=== PATIENT | female | born 1945 | race Caucasian/White ===

== ENCOUNTER 2017-05-04 11:26 | Emergency (ER) | payer MEDICARE, OTHER ==
[~2017-05-04] VITALS: Ht 152.4 cm; Wt 82.0 kg
[~2017-05-04 11:26] MED LIST: ABIL5TAB6 PO; ASPI1TAB69 PO; ATOR20TA15 PO; BENI5TAB4 PO; BUSP15TA PO; CARV6.252 PO; HYDR25TA5 PO; OMEP20TA PO; POTA-163 PO; RALO1TAB PO; THYR15 PO
[2017-05-04 11:35] VITALS: BP 137/79; PULSE 70; RESP 18; TEMP 98.7; O2SAT 97
[2017-05-04 11:45] VITALS: O2SAT 97
[2017-05-04] MEDS ORDERED: SODIUM CHLORIDE 0.9% FLUSH 10 ML FLUSH IVF PRN (11:45)
[2017-05-04] MEDS ORDERED: ASPIRIN 81 MG CHEW TAB PO ONE (11:45)
--- NOTE | 2017-05-04 11:45 | PD ---
HPI Chief Complaint: Chest Pain Time Seen by Provider: 11:33 Travel History International Travel<30 days: No Contact w/Intl Traveler<30days: No Traveled to known affect area: No History of Present Illness HPI 71-year-old female with history of mitral valve repair, hypertension, hyperlipidemia, here for evaluation of chest pain. Patient reports that she was sitting watching TV when she began to have substernal chest pain and pressure. Symptoms started about 11:10 AM. Patient describes the pain as sharp , nonradiating, no modifying factors. She took 2 sublingual nitroglycerin and reports some improvement in pain. Patient reports that she is followed by prem[employer] concrete batcher Dr. Red, and reports that she had a recent stress test which she believes was negative. She denies dyspnea. No history of DVT or PE. No paresthesias or motor deficits. PFSH Past Medical History Hx Anticoagulant Therapy: Yes (asa 81mg every other day) Arthritis: Yes (RIGHT FOOT FIRST TOE) Asthma: No Autoimmune Disease: No Blood Disorders: No Anxiety: Yes Depression: Yes Heart Rhythm Problems: No Cancer: No Cardiac Catheterization: Yes (no stents) Cardiovascular Problems: Yes (htn on meds) High Cholesterol: Yes Chemotherapy: No Chest Pain: Yes (HX OF PRIOR TO VALVE REPLACEMENT) Congestive Heart Failure: No COPD: No Cerebrovascular Accident: No Diabetes: No Diminished Hearing: No Endocrine: No Gastrointestinal Disorders: Yes GERD: Yes Genitourinary: No Headaches: Yes (OCCSL) Hepatitis: No Hiatal Hernia: No Hypertension: Yes Immune Disorder: No Implanted Vascular Access Dvce: Yes Kidney Stones: No Musculoskeletal: Yes Neurologic: No Psychiatric: No Respiratory: Yes Immunizations Current: Yes Migraines: No Myocardial Infarction: No Radiation Therapy: No Renal Failure: No Seizures: No Thyroid Disease: Yes (HYPO) Ulcer: No PNEUMOCCOCAL Vaccine (Year): 2 ?: Not Past Surgical History Abdominal Surgery: No AICD: No Body Medical Devices: ANNULOPLASTY RING TO AORTIC VALVE Cardiac Surgery: Yes (AORTIC VALVE REPLACEMENT IN 2010) Coronary Artery Bypass Graft: Yes Ear Surgery: No Endocrine Surgery: No Eye Surgery: No Genitourinary Surgery: No Gynecologic Surgery: Yes (HYSTERECTOMY 1991) Hysterectomy: Yes (1991) Joint Replacement: No Neurologic Surgery: No Oral Surgery: Yes (EXTRACTIONS) Pacemaker: No Thoracic Surgery: No Valve Replacement: Yes Other Surgery: Yes Social History Alcohol Use: No Tobacco Use: No Substance Use: No Allergies-Medications (Allergen,Severity, Reaction): Coded Allergies: Penicillin (Verified Allergy, Severe, Rash, 05/04/17) Reported Meds & Prescriptions Reported Meds & Active Scripts Active Reported Aspirin 325 Mg Tab 0.5 Tab PO DAILY Nitroglycerin SL (Nitroglycerin) 0.4 Mg Subl 0.4 Mg SL DIRECTED PRN ONE TABLET UNDER THE TONGUE NEEDED FOR CHEST PAIN, MAY REPEAT EVERY FIVE MINUTES FOR A TOTAL OF 3 DOSES OR CALL 911 IF NO RELIEF [place] Thyroid (Thyroid) 15 Mg Tab 50 Mg PO DAILY Raloxifene (Raloxifene HCl) 60 Mg Tab 60 Mg PO DAILY Hydrochlorothiazide 25 Mg Tab 25 Mg PO DAILY Benicar (Olmesartan) 5 Mg Tab 5 Mg PO DAILY Atorvastatin (Atorvastatin Calcium) 20 Mg Tab 20 Mg PO HS Potassium Chloride ER (Potassium Chloride) 20 Meq Tab 20 Meq PO DAILY Carvedilol 6.25 Mg Tab 6.25 Mg PO BID Omeprazole 20 Mg Tab 20 Mg PO DAILY Review of Systems Except as stated in HPI: all other systems reviewed are Neg Physical Exam Narrative GENERAL: Well-developed, well-nourished, comfortable, no acute distress. SKIN: Focused skin assessment warm/dry. No rash. HEAD: Atraumatic. Normocephalic. EYES: Pupils equal and round. No scleral icterus. No injection or drainage. ENT: Mucous membranes pink and moist. NECK: Trachea midline. No JVD. CARDIOVASCULAR: Regular rate and rhythm. Distal pulses brisk and equal bilaterally. RESPIRATORY: No accessory muscle use. Clear to auscultation. Breath sounds equal bilaterally. GASTROINTESTINAL: Abdomen soft, non-tender, nondistended. MUSCULOSKELETAL: No obvious deformities. No clubbing. No cyanosis. No edema. NEUROLOGICAL: Awake and alert. No obvious cranial nerve deficits. Motor grossly within normal limits. Normal speech. PSYCHIATRIC: Appropriate mood and affect; insight and judgment normal. Data Data Last Documented VS Vital Signs Date Time Temp Pulse Resp B/P Pulse Ox O2 Delivery O2 Flow Rate FiO2 05/04/17 14:30 56 16 144/80 100 Room Air 05/04/17 11:35 98.7 Orders Basic Metabolic Panel (Bmp) (05/04/17 11:40) Ckmb (Isoenzyme) Profile (05/04/17 11:40) Complete Blood Count With Diff (05/04/17 11:40) Magnesium (Mg) (05/04/17 11:40) Prothrombin Time / Inr (Pt) (05/04/17 11:40) Act Partial Throm Time (Ptt) (05/04/17 11:40) Troponin I (05/04/17 11:40) Chest, Single Ap (05/04/17 11:40) Ecg Monitoring (05/04/17 11:40) Bilateral Bp Monitoring (05/04/17 11:40) Iv Access Insert/Monitor (05/04/17 11:40) Oximetry (05/04/17 11:40) Oxygen Administration (05/04/17 11:40) Aspirin Chew (Aspirin Chew) (05/04/17 11:45) Sodium Chloride 0.9% Flush (Ns Flush) (05/04/17 11:45) Acetaminophen (Tylenol) (05/04/17 13:00) Troponin I (05/04/17 15:00) Electrocardiogram (05/04/17 ) Electrocardiogram (05/04/17 11:32) Labs Laboratory Tests Test 05/04/17 05/04/17 11:35 14:55 White Blood Count 6.8 TH/MM3 Red Blood Count 4.40 MIL/MM3 Hemoglobin 12.6 GM/DL Hematocrit 37.7 % Mean Corpuscular Volume 85.7 FL Mean Corpuscular Hemoglobin 28.6 PG Mean Corpuscular Hemoglobin 33.4 % Concent Red Cell Distribution Width 13.3 % Platelet Count 152 TH/MM3 Mean Platelet Volume 10.3 FL Neutrophils (%) (Auto) 63.8 % Lymphocytes (%) (Auto) 22.9 % Monocytes (%) (Auto) 6.8 % Eosinophils (%) (Auto) 2.6 % Basophils (%) (Auto) 3.9 % Neutrophils # (Auto) 4.2 TH/MM3 Lymphocytes # (Auto) 1.6 TH/MM3 Monocytes # (Auto) 0.5 TH/MM3 Eosinophils # (Auto) 0.2 TH/MM3 Basophils # (Auto) 0.3 TH/MM3 CBC Comment AUTO DIFF Differential Comment AUTO DIFF CONFIRMED Prothrombin Time 10.4 SEC Prothromb Time International 0.9 RATIO Ratio Activated Partial 22.1 SEC Thromboplast Time Sodium Level 143 MEQ/L Potassium Level 4.0 MEQ/L Chloride Level 110 MEQ/L Carbon Dioxide Level 24.8 MEQ/L Anion Gap 8 MEQ/L Blood Urea Nitrogen 20 MG/DL Creatinine 1.10 MG/DL Estimat Glomerular Filtration 49 ML/MIN Rate Random Glucose 112 MG/DL Calcium Level 8.8 MG/DL Magnesium Level 1.8 MG/DL Total Creatine Kinase 47 U/L Troponin I LESS THAN 0.02 LESS THAN 0.02 NG/ML NG/ML MDM Medical Decision Making Medical Screen Exam Complete: Yes Emergency Medical Condition: Yes Medical Record Reviewed: Yes Interpretation(s) EKG: Sinus, rate 68, normal axis, normal intervals, no acute ischemic abnormality. EKG #2 (3 hours after the first): Sinus, rate 54, normal axis, normal intervals , no acute ischemic abnormality. Differential Diagnosis ACS, pneumothorax, pericarditis, PE, pneumonia, musculoskeletal pain Narrative Course Shortly after the patient arrived to the emergency department, was able to talk with the patient's [employer] concrete batcher Dr. Red. He reviewed his office notes, and the patient had a nuclear stress test in the summer of 2015 pelvis unremarkable. He recommends performing 2 sets of cardiac enzymes here in the emergency department and discharging the patient home if they are negative with follow-up in his office in the next week. Initial vital signs show heart rate 70, blood pressure 137/79, pulse ox 97% on room air, oral temp of 98.7F. CBC is unremarkable. BMP is remarkable for BUN 20, creatinine 1.1, GFR 49 which was similar in August of last year, otherwise unremarkable. Initial cardiac enzymes are negative. Chest x-ray: Mild linear left lower lung atelectasis. Mild pulmonary venous congestion. Repeat EKG performed 3 hours after the first shows sinus bradycardia with a rate 54. No acute ischemic abnormalities. Repeat troponin 3 hours after the first is also negative. Patient made aware of all findings. She is resting comfortably. O2 saturation is 100% on room air. She is in no acute distress. Patient's pain is not likely cardiac in nature. She is stable for discharge home with outpatient follow-up with her [employer] concrete batcher Dr. Ruiz this week. She was informed on when to return to the emergency department. She verbalizes understanding and agreement with plan. Diagnosis Primary Impression: Atypical chest pain Referrals: Steve Ruiz MD 3 days Primary Care Physician 3 days Additional Instructions: Follow-up with your [employer] concrete batcher this week. Return to the emergency department for worsening symptoms or any other concerns. Disposition: 01 DISCHARGE HOME Condition: Stable Tyler Lundberg MD May 04, 2017 11:45
[2017-05-04 11:50] VITALS: BP_SYST 116; BP_SYST 128; BP_DIAS 68; BP_DIAS 70; PULSE 62; RESP 18; O2SAT 98
[2017-05-04 11:50] LABS: AUTOMATED NEUTROPHIL # 4.2 TH/MM3 (1.8-7.7); BASOPHIL # 0.3 TH/MM3 (0-0.2); BASOPHIL % 3.9 % (0.0-2.0); EOSINOPHIL # 0.2 TH/MM3 (0-0.4); EOSINOPHIL % 2.6 % (0.0-4.0); HEMATOCRIT 37.7 % (35.0-46.0); LYMPH % 22.9 % (9.0-44.0); LYMPHOCYTE # 1.6 TH/MM3 (1.0-4.8); MEAN CELL VOLUME 85.7 FL (80.0-100.0); MEAN CORPUSCULAR HEMOGLOBIN 28.6 PG (27.0-34.0); MEAN CORPUSCULAR HGB CONC 33.4 % (32.0-36.0); MONO % 6.8 % (0.0-8.0); NEUT % 63.8 % (16.0-70.0); PLATELET COUNT 152 TH/MM3 (150-450); RED CELL DISTRIBUTION WIDTH 13.3 % (11.6-17.2); WHITE BLOOD COUNT 6.8 TH/MM3 (4.0-11.0)
[2017-05-04] MEDS ORDERED: ASPI-200 PO (11:52)
[2017-05-04] MEDS ORDERED: NITR1SUB3 SL (11:52)
--- NOTE | 2017-05-04 11:52 | RADRPT ---
EXAM DATE/TIME: 05/04/2017 11:45 [facility] COMPARISON: CHEST SINGLE AP, September 24, 2016, 14:30. INDICATIONS : Chest pain MEDICAL HISTORY : None. SURGICAL HISTORY : CABG. ENCOUNTER: Initial ACUITY: 1 day PAIN SCORE: 9/10 LOCATION: Bilateral chest FINDINGS: A single view of the chest demonstrates mild platelike atelectasis in the left lung base. Otherwise, the lungs remain grossly clear. There is a mild prominence of the pulmonary vasculature. The heart si ze is within normal limits and stable. There is evidence of previous cardiothoracic surgery. There ar e no pleural effusions. The bony structures are stable.. CONCLUSION: 1. Mild linear left lower lung atelectasis. 2. Mild pulmonary venous congestion. Jim Yusuf MD on May 04, 2017 at 11:49 Board Certified Radiologist. This report was verified electronically.
[2017-05-04] MEDS ORDERED: ASPI325T PO (11:53)
[2017-05-04 11:58] LABS: HEMO FLAGS AUTO DIFF
[2017-05-04 11:59] LABS: CHLORIDE 110 MEQ/L (98-107); SODIUM (NA) 143 MEQ/L (136-145)
[2017-05-04 12:01] LABS: APTT (PATIENT) 22.1 SEC (24.3-30.1); INTERNATIONAL NORMALIZED RATIO 0.9 RATIO; PROTHROMBIN TIME - PATIENT 10.4 SEC (9.8-11.6)
[2017-05-04 12:02] LABS: ANION GAP 8 MEQ/L (5-15); BICARBONATE 24.8 MEQ/L (21.0-32.0); BLOOD UREA NITROGEN 20 MG/DL (7-18); MAGNESIUM 1.8 MG/DL (1.5-2.5)
[2017-05-04 12:06] LABS: GLOMERULAR FILTRATION RATE 49 ML/MIN (>89)
[2017-05-04 12:30] LABS: SCAN/DIFF AUTO DIFF CONFIRMED
[2017-05-04 12:42] LABS: CREATINE KINASE 47 U/L (26-192)
[2017-05-04] MEDS ORDERED: ACETAMINOPHEN 325 MG TAB PO ONE (13:00)
[2017-05-04 13:05] VITALS: BP 124/77; PULSE 56; RESP 16; O2SAT 100
[2017-05-04 14:30] VITALS: BP 144/80; PULSE 56; RESP 16; O2SAT 100
[2017-05-04 16:45] VITALS: BP 146/80; PULSE 60; RESP 16; O2SAT 99
--- NOTE | 2017-05-05 16:42 | EKG ---
Date Performed: 05/04/2017 Time Performed: 14:50:41 PTAGE: 71 years EKG: SINUS BRADYCARDIA BORDERLINE ECG PREVIOUS TRACING : 09/24/2016 16.40 Compared to prior tracing no significant change DOCTOR: Igor Valdez Interpretating Date/Time 05/05/2017 16:41:05
--- NOTE | 2017-05-05 17:01 | EKG ---
Date Performed: 05/04/2017 Time Performed: 11:32:12 PTAGE: 71 years EKG: Sinus rhythm NONSPECIFIC ST & T-WAVE ABNORMALITY BORDERLINE ECG INTERPRETATION BASED ON A DEFAULT AGE OF 40 YEARS Compared to the PREVIOUS TRACING from 09/24/16, no significant change DOCTOR: Igor Valdez Interpretating Date/Time 05/05/2017 16:59:13
== END 2017-05-04 16:45 | disposition home or self-care (01) ==
LOC: PHED 11:26
DX: R07.89 Other chest pain (principal); Z79.82 Long term (current) use of aspirin; I10 Essential (primary) hypertension; E78.00 Pure hypercholesterolemia, unspecified; K21.9 Gastro-esophageal reflux disease without esophagitis; Z95.2 Presence of prosthetic heart valve
CPT/HCPCS: 71010; 80048; 82550; 83735; 84484; 85025; 85610; 85730; 93005

== ENCOUNTER 2018-03-13 13:50 | Emergency (ER) | payer MEDICARE, OTHER ==
[~2018-03-13 13:50] MED LIST changes: -ABIL5TAB6 PO; +ASPI-183 PO; -ASPI1TAB69 PO; -BUSP15TA PO; +NITR1SUB3 SL; -OMEP20TA PO; +OMEP20TA93 PO
--- NOTE | 2018-03-13 14:11 | PD ---
HPI Chief Complaint: Chest Pain Time Seen by Provider: 13:58 Travel History International Travel<30 days: No Contact w/Intl Traveler<30days: No Traveled to known affect area: No History of Present Illness HPI 72-year-old female is complaining of lower sternal pain. She had several teeth pulled on the . Last night she took a tablet of clindamycin and soon after she started having a bad pain which was substernal and epigastric in location. The pain eventually relieved subsided she took the pill twice again today once in the morning and once this afternoon and both time she started having the same pain again. He does have a history of heart disease. She has had open heart surgery to repair a valve. She sees Dr. Mery levi. He had done a stress test on her on 18 February in anticipation of her dental extractions. She is not aware of any history of heart attack she is having pain now which is located in the lower sternal area PFSH Past Medical History Hx Anticoagulant Therapy: Yes (asa 81mg every other day) Arthritis: Yes Asthma: No Autoimmune Disease: No Blood Disorders: No Anxiety: Yes Depression: Yes Heart Rhythm Problems: No Cancer: No Cardiac Catheterization: Yes (No stents) Cardiovascular Problems: Yes (htn on meds) High Cholesterol: Yes Chemotherapy: No Chest Pain: Yes Congestive Heart Failure: No COPD: No Cerebrovascular Accident: No Diabetes: No Diminished Hearing: No Endocrine: No Gastrointestinal Disorders: Yes GERD: Yes Genitourinary: No Headaches: Yes Hepatitis: No Hiatal Hernia: No Hypertension: Yes Immune Disorder: No Implanted Vascular Access Dvce: Yes Kidney Stones: No Musculoskeletal: Yes Neurologic: No Psychiatric: No Respiratory: Yes Immunizations Current: Yes Migraines: No Myocardial Infarction: No Radiation Therapy: No Renal Failure: No Seizures: No Thyroid Disease: Yes (Hypo-) Ulcer: No PNEUMOCCOCAL Vaccine (Year): 2 Menopausal: Yes Past Surgical History Abdominal Surgery: No AICD: No Body Medical Devices: ANNULOPLASTY RING TO AORTIC VALVE Cardiac Surgery: Yes (AORTIC VALVE REPLACEMENT IN 2010) Coronary Artery Bypass Graft: Yes Ear Surgery: No Endocrine Surgery: No Eye Surgery: No Genitourinary Surgery: No Gynecologic Surgery: Yes (HYSTERECTOMY 1991) Hysterectomy: Yes (1991) Joint Replacement: No Neurologic Surgery: No Oral Surgery: Yes (EXTRACTIONS) Pacemaker: No Thoracic Surgery: No Valve Replacement: Yes (AVR) Other Surgery: Yes Social History Alcohol Use: Yes (Rare, "maybe twice a year") Tobacco Use: No Substance Use: No Allergies-Medications (Allergen,Severity, Reaction): Coded Allergies: penicillin G (Unverified Allergy, Severe, Rash, 06/12/17) Reported Meds & Prescriptions Reported Meds & Active Scripts Active Reported Aspirin 325 Mg Tab 0.5 Tab PO DAILY Nitroglycerin SL (Nitroglycerin) 0.4 Mg Subl 0.4 Mg SL DIRECTED PRN ONE TABLET UNDER THE TONGUE NEEDED FOR CHEST PAIN, MAY REPEAT EVERY FIVE MINUTES FOR A TOTAL OF 3 DOSES OR CALL 911 IF NO RELIEF [place] Thyroid (Thyroid) 15 Mg Tab 50 Mg PO DAILY Raloxifene (Raloxifene HCl) 60 Mg Tab 60 Mg PO DAILY Hydrochlorothiazide 25 Mg Tab 25 Mg PO DAILY Benicar (Olmesartan) 5 Mg Tab 5 Mg PO DAILY Atorvastatin (Atorvastatin Calcium) 20 Mg Tab 20 Mg PO HS Potassium Chloride ER (Potassium Chloride) 20 Meq Tab 20 Meq PO DAILY Carvedilol 6.25 Mg Tab 6.25 Mg PO BID Omeprazole 20 Mg Tab 20 Mg PO DAILY Review of Systems General / Constitutional: No: Fever, Chills Eyes: No: Diploplia, Blurred Vision HENT: Positive: Dental Difficulties Cardiovascular: Positive: Chest Pain or Discomfort Respiratory: No: Cough Gastrointestinal: Positive: Abdominal Pain Genitourinary: No: Urgency, Frequency Musculoskeletal: No: Myalgias, Arthralgias Skin: No Rash Physical Exam Narrative GENERAL: Well-developed female SKIN: Focused skin assessment warm/dry. HEAD: Atraumatic. Normocephalic. EYES: Pupils equal and round. No scleral icterus. No injection or drainage. ENT: No nasal bleeding or discharge. Mucous membranes pink and moist. NECK: Trachea midline. No JVD. CARDIOVASCULAR: Regular rate and rhythm. No murmur appreciated. RESPIRATORY: No accessory muscle use. Clear to auscultation. Breath sounds equal bilaterally. GASTROINTESTINAL: Abdomen soft, there is epigastric tenderness, nondistended. Hepatic and splenic margins not palpable. MUSCULOSKELETAL: No obvious deformities. No clubbing. No cyanosis. No edema. NEUROLOGICAL: Awake and alert. No obvious cranial nerve deficits. Motor grossly within normal limits. Normal speech. PSYCHIATRIC: Appropriate mood and affect; insight and judgment normal. Data Data Last Documented VS Vital Signs Date Time Temp Pulse Resp B/P (MAP) Pulse Ox O2 Delivery O2 Flow Rate FiO2 03/13/18 15:01 66 18 132/66 (88) 96 Room Air Orders Orders Electrocardiogram (03/13/18 14:08) Complete Blood Count With Diff (03/13/18 14:08) Comprehensive Metabolic Panel (03/13/18 14:08) Troponin I (03/13/18 14:08) Lipase (03/13/18 14:08) Sodium Chlor 0.9% 1000 Ml Inj (Ns 1000 M (03/13/18 14:15) Ondansetron Inj (Zofran Inj) (03/13/18 14:15) Morphine Inj (Morphine Inj) (03/13/18 14:15) Pantoprazole Inj (Protonix Inj) (03/13/18 14:15) Al-Mag Hy-Si 40-40-4 Mg/Ml Liq (Mag-Al P (03/13/18 15:30) Labs Laboratory Tests Test 03/13/18 14:45 White Blood Count 9.2 TH/MM3 Red Blood Count 4.39 MIL/MM3 Hemoglobin 12.4 GM/DL Hematocrit 38.0 % Mean Corpuscular Volume 86.6 FL Mean Corpuscular Hemoglobin 28.4 PG Mean Corpuscular Hemoglobin Concent 32.8 % Red Cell Distribution Width 13.1 % Platelet Count 154 TH/MM3 Mean Platelet Volume 9.9 FL Neutrophils (%) (Auto) 76.1 % Lymphocytes (%) (Auto) 13.5 % Monocytes (%) (Auto) 8.4 % Eosinophils (%) (Auto) 1.2 % Basophils (%) (Auto) 0.8 % Neutrophils # (Auto) 7.0 TH/MM3 Lymphocytes # (Auto) 1.2 TH/MM3 Monocytes # (Auto) 0.8 TH/MM3 Eosinophils # (Auto) 0.1 TH/MM3 Basophils # (Auto) 0.1 TH/MM3 CBC Comment DIFF FINAL Differential Comment Blood Urea Nitrogen 16 MG/DL Creatinine 0.96 MG/DL Random Glucose 96 MG/DL Total Protein 6.6 GM/DL Albumin 3.3 GM/DL Calcium Level 8.9 MG/DL Alkaline Phosphatase 105 U/L Aspartate Amino Transf (AST/SGOT) 23 U/L Alanine Aminotransferase (ALT/SGPT) 17 U/L Total Bilirubin 0.8 MG/DL Sodium Level 137 MEQ/L Potassium Level 3.6 MEQ/L Chloride Level 103 MEQ/L Carbon Dioxide Level 25.6 MEQ/L Anion Gap 8 MEQ/L Estimat Glomerular Filtration Rate 57 ML/MIN Troponin I LESS THAN 0.02 NG/ML Lipase 117 U/L MDM Medical Decision Making Medical Screen Exam Complete: Yes Emergency Medical Condition: Yes Medical Record Reviewed: Yes Differential Diagnosis Differential includes gastritis, coronary artery disease, atypical chest pain Narrative Course This lady's pain has been triggered on several occasions by ingesting clindamycin and I believe the pain is secondary to gastritis related to the pill. Her EKG is unchanged from previous EKGs. Her troponin is normal. I have spoken with Dr. Mery Victoria who is her template fitter and who she has an appointment with on Sunday. He had done a stress test on her prior to the dental extraction. She is stable for discharge this does not appear to be cardiac pain. She is to stop the clindamycin and we will substitute Keflex Diagnosis Primary Impression: Gastritis Scripts Cephalexin (Keflex) 500 Mg Capsule 500 MG PO Q6H for Infection, #28 CAP 0 Refills Prov: Homer Ross MD 03/13/18 Condition: Stable Homer Ross MD March 13, 2018 14:11
[2018-03-13] MEDS ORDERED: SODIUM CHLOR 0.9% 1000 ML INJ 1,000 ML IV SCH (14:15)
[2018-03-13] MEDS ORDERED: MORPHINE SULFATE 4 MG/ML INJ IV PUSH ONE (14:15)
[2018-03-13] MEDS ORDERED: PANTOPRAZOLE SODIUM 40 MG VIAL IV PUSH ONE (14:15)
[2018-03-13] MEDS ORDERED: ONDANSETRON HCL 4 MG/2 ML VIAL IV PUSH ONE (14:15)
[2018-03-13 14:55] LABS: BASOPHIL # 0.1 TH/MM3 (0-0.2); BASOPHIL % 0.8 % (0.0-2.0); EOSINOPHIL # 0.1 TH/MM3 (0-0.4); EOSINOPHIL % 1.2 % (0.0-4.0); HEMOGLOBIN 12.4 GM/DL (11.6-15.3); LYMPH % 13.5 % (9.0-44.0); LYMPHOCYTE # 1.2 TH/MM3 (1.0-4.8); MEAN CELL VOLUME 86.6 FL (80.0-100.0); MEAN CORPUSCULAR HEMOGLOBIN 28.4 PG (27.0-34.0); MEAN CORPUSCULAR HGB CONC 32.8 % (32.0-36.0); MEAN PLATELET VOLUME 9.9 FL (7.0-11.0); MONO % 8.4 % (0.0-8.0); MONOCYTE # 0.8 TH/MM3 (0-0.9); NEUT % 76.1 % (16.0-70.0); PLATELET COUNT 154 TH/MM3 (150-450); RED BLOOD COUNT 4.39 MIL/MM3 (4.00-5.30); RED CELL DISTRIBUTION WIDTH 13.1 % (11.6-17.2); WHITE BLOOD COUNT 9.2 TH/MM3 (4.0-11.0)
[2018-03-13 15:01] VITALS: BP 132/66; PULSE 66; RESP 18; O2SAT 96
[2018-03-13 15:03] LABS: CHLORIDE 103 MEQ/L (98-107); SODIUM (NA) 137 MEQ/L (136-145)
[2018-03-13 15:07] LABS: ALBUMIN 3.3 GM/DL (3.4-5.0); BICARBONATE 25.6 MEQ/L (21.0-32.0); CALCIUM 8.9 MG/DL (8.5-10.1)
[2018-03-13 15:08] LABS: BLOOD UREA NITROGEN 16 MG/DL (7-18); GLUCOSE,RANDOM 96 MG/DL (74-106)
[2018-03-13 15:10] LABS: ALT (GPT) 17 U/L (10-53); AST (GOT) 23 U/L (15-37); CREATININE 0.96 MG/DL (0.50-1.00); GLOMERULAR FILTRATION RATE 57 ML/MIN (>89)
[2018-03-13 15:12] LABS: TOTAL BILIRUBIN ADULT 0.8 MG/DL (0.2-1.0); TOTAL PROTEIN 6.6 GM/DL (6.4-8.2)
[2018-03-13 15:13] LABS: ALKALINE PHOSPHATASE 105 U/L (45-117)
[2018-03-13 15:15] LABS: TROPONIN I LESS THAN 0.02 NG/ML (0.02-0.05)
[2018-03-13] MEDS ORDERED: ALUMINUM/MAGNESIUM/SIMETH 30 ML CUP PO ONE (15:30)
[2018-03-13] MEDS ORDERED: CEPH-460 PO (15:30)
--- NOTE | 2018-03-15 12:08 | EKG ---
Date Performed: 03/13/2018 Time Performed: 13:58:27 PTAGE: 72 years EKG: Sinus rhythm MODERATE ST DEPRESSION ABNORMAL ECG PREVIOUS TRACING : 05/04/2017 14.50 DOCTOR: Lupe Stubbs Interpretating Date/Time 03/15/2018 11:56:59
== END 2018-03-13 15:55 | disposition home or self-care (01) ==
LOC: PHED 13:50
DX: K29.70 Gastritis, unspecified, without bleeding (principal); I51.9 Heart disease, unspecified; R94.31 Abnormal electrocardiogram [ECG] [EKG]; I10 Essential (primary) hypertension; E78.00 Pure hypercholesterolemia, unspecified; F41.9 Anxiety disorder, unspecified; K21.9 Gastro-esophageal reflux disease without esophagitis; E03.9 Hypothyroidism, unspecified; M19.90 Unspecified osteoarthritis, unspecified site
CPT/HCPCS: 80053; 83690; 84484; 85025; 93005; 96374; 96375; 99284; C9113; J2270; J2405; J7030